=== PATIENT | female | born 1955 | race Caucasian/White ===

== ENCOUNTER 2016-12-26 22:54 | Emergency (ER) | payer OTHER ==
[~2016-12-26] VITALS: Ht 167.6 cm; Wt 83.9 kg
[2016-12-26 23:07] VITALS: BP_SYST 107
[2016-12-27] MEDS ORDERED: DIPHENHYDRAMINE INJ 50 MG/ML VIAL IM ONE (01:00)
[2016-12-27] MEDS ORDERED: ceFAZolin SODIUM 1 GM VIAL IM ONE (01:00)
[2016-12-27 02:00] VITALS: BP_SYST 107
== END 2016-12-27 02:00 | disposition home or self-care (01) ==
LOC: SED 22:54
DX: L30.8 Other specified dermatitis (principal)
CPT/HCPCS: 96372; 99284; J0690; J1200

== ENCOUNTER 2017-03-26 08:51 | Outpatient (CLI) | payer OTHER | END 2017-03-26 20:04 | disposition home or self-care (01) | LOC: SMA 08:51 | PROVIDERS: ATTEND Obstetrics & Gynecology | DX: Z12.31 Encounter for screening mammogram for malignant neoplasm of breast (principal) | CPT/HCPCS: G0202 ==

== ENCOUNTER 2017-04-13 00:57 | Emergency (ER) | payer OTHER ==
[~2017-04-13] VITALS: Ht 167.6 cm; Wt 81.6 kg
[2017-04-13 00:57] VITALS: BP_SYST 142
[2017-04-13] MEDS ORDERED: MORPHINE 4 MG/ML INJ. SYRINGE IM ONE (01:15)
[2017-04-13] MEDS ORDERED: HYDROmorphone 1 MG INJ. 1 MG/ML AMPUL IM ONE (01:45)
[2017-04-13] MEDS ORDERED: NITROGLYCERIN 1 INCH (GM) OINT. ONE (03:38)
[2017-04-13 03:47] LABS: BASOPHILS % (AUTO) 0.4 % (0.0-2.0); EOSINOPHILS # (AUTO) 0.2 K/uL (0.0-0.4); EOSINOPHILS % (AUTO) 2.3 % (0.0-4.0); HEMATOCRIT 42.7 % (36-48); HEMOGLOBIN 13.8 g/dL (12.0-16.0); LYMPHOCYTES # (AUTO) 1.5 K/uL (1.0-5.5); LYMPHOCYTES % (AUTO) 21.9 % (20.5-51.5); MEAN CORPUSCULAR HEMOGLOBIN 28 pg (27-31); MEAN CORPUSCULAR HGB CONC 32 % (32-36); MEAN CORPUSCULAR VOLUME 85 fL (79.0-98.0); MONOCYTES # (AUTO) 0.4 K/uL (0.0-1.0); MONOCYTES % (AUTO) 5.5 % (1.7-9.3); NEUTROPHILS # (AUTO) 4.6 K/uL (1.8-7.7); NEUTROPHILS % (AUTO) 69.9 % (40.0-70.0); PLATELET COUNT (AUTO) 291 K/uL (130-430); RED BLOOD CELL COUNT(AUTO) 5.02 MIL/uL (4.2-6.2); RED CELL DISTRIBUTION WIDTH 13.2 % (9.0-15.0); WHITE BLOOD COUNT (AUTO) 6.7 K/uL (4.8-10.8)
[2017-04-13 03:49] LABS: CALCIUM 9.1 mg/dL (8.4-11.0); CREATININE 0.9 mg/dL (0.55-1.30); POTASSIUM 4.4 mmol/L (3.5-5.1)
[2017-04-13 03:52] LABS: INR 0.9 (0.8-1.2); PROTHROMBIN TIME 9.6 SECS (9.5-12.5)
[2017-04-13 03:54] LABS: ALBUMIN 3.5 g/dL (3.4-4.8); TOTAL BILIRUBIN 0.3 mg/dL (0.0-1.0)
[2017-04-13 04:19] LABS: BILIRUBIN,URINE NEGATIVE (NEGATIVE); BLOOD, URINE NEGATIVE (NEGATIVE); CLARITY/URINE CLEAR (CLEAR); COLOR,URINE YELLOW (YELLOW); GLUCOSE,URINE NEGATIVE (NEGATIVE); KETONES,URINE NEGATIVE (NEGATIVE); LEUKOCYTE ESTERASE ,URINE NEGATIVE (NEGATIVE); NITRITE, URINE NEGATIVE (NEGATIVE); PROTEIN URINE NEGATIVE (NEGATIVE); UROBILINOGEN,URINE 0.2 (0.2-1.0)
[2017-04-13 04:35] VITALS: BP_SYST 116
[2017-04-13] MEDS ORDERED: NITROGLYCERIN 1 INCH (GM) OINT. TP ONE (23:30)
== END 2017-04-13 04:35 | disposition home or self-care (01) ==
LOC: SED 00:57
DX: S39.012A Strain of muscle, fascia and tendon of lower back, initial encounter (principal); Z90.710 Acquired absence of both cervix and uterus; X58.XXXA Exposure to other specified factors, initial encounter; Y93.89 Activity, other specified; Y92.89 Other specified places as the place of occurrence of the external cause; Y99.8 Other external cause status
CPT/HCPCS: 36415; 71010; 80053; 81003; 83880; 84484; 85025; 85379; 85610; 85730; 93005; 96372; 99285; J1170; J2270

== ENCOUNTER 2022-12-08 11:08 | Emergency (ER) | payer OTHER ==
[~2022-12-08] VITALS: Ht 167.6 cm; Wt 81.6 kg
[2022-12-08 11:14] VITALS: BP_SYST 119; PULSE 64; RESP 18; TEMP 97.1; O2SAT 99
--- NOTE | 2022-12-08 11:15 | NUR ---
Patient to ER bed 6 to gown for evaluation. Side rails up. Report given to URI WHITAKER.
--- NOTE | 2022-12-08 11:20 | NUR ---
PT BIB SELF, C/O LEFT FOOT/ANKLE PAIN, NOT ABLE TO BEAR WEIGHT ON L FOOT S/P MECHANICAL FALL THIS MORNING. PT STATES SHE ALSO HAS PAIN IN HER R KNEE, R ANKLE AND R HAND IN THE FALL. PAIN 9/10. NO SYNCOPE OR LIGHTHEADEDDNESS NOTED BEFORE FALL, PT TRIPPED ON ROCK. PT HAS HISTORY OF HYSTERECTOMY, THYROIDECTOMY AND PRE DIABETES. NO ALLERGIES TO MEDICATIONS. A/OX4. STABLE VITALS.
--- NOTE | 2022-12-08 11:33 | NUR ---
MD DR MARCUS EVALUATING PT AT BEDSIDE
[2022-12-08] MEDS ORDERED: IBUP-1969 PO (12:15)
--- NOTE | 2022-12-08 12:58 | NUR ---
Patient given written and verbal discharge instructions and verbalizes understanding. ER MD DR MARCUS discussed with patient the results and treatment provided. Patient in stable condition. ID arm band removed. Rx of MOTRIN 600MG given. Patient educated on pain management and to follow up with PMD. Pain Scale . Opportunity for questions provided and answered. Medication side effect fact sheet provided.
[2022-12-08 12:59] VITALS: BP_SYST 119; PULSE 64; RESP 18; TEMP 97.1; O2SAT 99
== END 2022-12-08 12:58 | disposition home or self-care (01) ==
LOC: SED 11:08
DX: S92.355A Nondisplaced fracture of fifth metatarsal bone, left foot, initial encounter for closed fracture (principal); Z79.899 Other long term (current) drug therapy; W19.XXXA Unspecified fall, initial encounter; Y93.89 Activity, other specified; Y92.89 Other specified places as the place of occurrence of the external cause; Y99.8 Other external cause status
CPT/HCPCS: 99283